=== PATIENT | male | born 2005 | race Caucasian/White ===

== ENCOUNTER 2023-02-17 16:31 | Emergency (ER) | payer OTHER, MEDICAID, SELFPAY ==
[2023-02-17 16:33] VITALS: BP 120/50; PULSE 76; RESP 17; O2SAT 97; BMI 37.5
--- NOTE | 2023-02-17 16:34 | CTR_ITS ---
PROCEDURE INFORMATION: Exam: CT Head Without Contrast Exam date and time: 02/17/2023 5:47 PM Age: 18 years old Clinical indication: Altered mental status/memory loss; Patient HX: AMS post marijuana consumption TECHNIQUE: Imaging protocol: Computed tomography of the head without contrast. Radiation optimization: All CT scans at this facility use at least one of these dose optimization techniques: automated exposure control; mA and/or kV adjustment per patient size (includes targeted exams where dose is matched to clinical indication); or iterative reconstruction. REPORTING DATA: Count of CT and Cardiac NM exams in prior 12 months: This patient has received 0 known CTs and 0 known cardiac nuclear medicine studies in the 12 months prior to the current study. COMPARISON: No relevant prior studies available. RADIATION DOSE METRICS: Total DLP (mGy-cm): 1223.59 FINDINGS: Brain: Normal. No hemorrhage. Unremarkable white matter. No mass effect. Cerebral ventricles: No ventriculomegaly. Paranasal sinuses: Bilateral ethmoid sinus mucosal thickening. Mastoid air cells: Visualized mastoid air cells are well aerated. Bones/joints: Unremarkable. No acute fracture. Soft tissues: Unremarkable. CT/CT head wo con* [id number] IMPRESSION: Negative for intracranial hemorrhage or mass effect.
--- NOTE | 2023-02-17 16:34 | XRR_ITS ---
PROCEDURE INFORMATION: Exam: XR Chest Exam date and time: 02/17/2023 5:13 PM Age: 18 years old Clinical indication: Cough and dyspnea; Additional info: Dyspnea/cough TECHNIQUE: Imaging protocol: Radiologic exam of the chest. Views: 1 view. COMPARISON: No relevant prior studies available. FINDINGS: Lungs: Unremarkable. No consolidation. Pleural spaces: Unremarkable. No pleural effusion. No pneumothorax. Heart/Mediastinum: Unremarkable. No cardiomegaly. Bones/joints: Unremarkable. XR/XR chest 1V portable [id number] IMPRESSION: No acute findings.
--- NOTE | 2023-02-17 16:39 | ECG_ITS ---
[facility] Test Date: 2023-02-17 Pat Name: Herber Rodriguez Department: Room: Gender: Male Tag[place]: : 2005 Requested By: Oscar Boyce Order Number: [id number] Yemi MD: Rafa Bryant M.D. Measurements Intervals [place] Rate: 78 P: 32 NC: 151 QRS: 32 QRSD: 98 T: 27 QT: 358 QTc: 410 Interpretive Statements SINUS RHYTHM No previous ECG available for comparison Electronically Signed On 02-18-2023 9:29:12 CDT by Rafa Bryant M.D. [id number]
--- NOTE | 2023-02-17 16:45 | W.ED.CHESTPA ---
Documented by User: Oscar oFy DO 02/18/23 10:44 HPI - Chest Pain General: Chief Complaint: Chest Pain Stated Complaint: AMS Time Seen by Provider: 02/17/23 16:33 Source: patient Mode of arrival: EMS History of Present Illness: 18-year-old male presents emergency room complaining of altered mental status and chest discomfort. He smoked a large quantity of marijuana started getting some chest discomfort around 3:00 he called EMS he was given nitro 2 mg Narcan and aspirin in route. He continues to have discomfort and is very positional that he is moving things around the apartment at the time he started experiencing the pain has not had any vomiting. Patient is obese he is not diabetic and has no history of coronary artery disease. MD complaint: chest pain Onset (ago): hour(s) Timing of current episode: episodic Onset: during exertion Pain location: left chest Pain radiation: none Severity: moderate Quality: sharp Relieving factors: nothing Exacerbating factors: nothing Associated symptoms: Deny abdominal pain, diaphoresis, dyspnea, fever(s), leg edema, nausea, palpitations, sense of impending doom, syncope or vomiting Review of Systems Const: Denies: fever(s), chills or diaphoresis ENMT: Denies: throat pain, ear or mastoid pain, nasal discharge or nasal congestion Card: Reports: chest pain; Denies: palpitations, irregular heart rhythm, edema or syncope Resp: Denies: dyspnea GI: Denies: abdominal pain, nausea or vomiting : Denies: flank pain, dysuria, urinary frequency or urinary urgency Musc: Denies: neck pain or back pain Skin/Breast: Denies: rash or pruritus Physical Exam Const: GENERAL APPEARANCE: cooperative ORIENTATION/CONSCIOUSNESS: Yes awake HENMT: COMMON NORMALS: normocephalic, atraumatic and hearing grossly normal bilaterally HEAD & SCALP: normocephalic and atraumatic Resp: COMMON NORMALS: normal respiratory effort, No retractions, No use of accessory muscles and clear to auscultation bilaterally AUSCULTATION: clear to auscultation bilaterally Cardio: COMMON NORMALS: regular rate, regular rhythm and No murmurs present (Cardio) RATE: regular rate RHYTHM: regular rhythm GI: COMMON NORMALS: Soft to palpation and No hepatosplenomegaly present AUSCULTATION: Yes normoactive bowel sounds PALPATION: Yes Soft to palpation, No Tenderness to palpation present (GI), No Guarding due to palpation present (GI) and Yes No hepatosplenomegaly present Extremity: COMMON NORMALS: normal to inspection, capillary refill normal, no clubbing, cyanosis or edema, no calf tenderness and no pedal edema Skin: COMMON NORMALS: no rashes or lesions noted GENERAL SKIN EXAM: no rashes or lesions noted Course Vital Signs: Vital signs: Vital Signs Pulse Rate 63 02/17/23 19:04 Respiratory Rate 18 02/17/23 19:04 Blood Pressure 111/68 02/17/23 19:04 Pulse Oximetry 97 02/17/23 19:04 Oxygen Delivery Me thod Room Air 02/17/23 19:04 MDM - Chest Pain Medical Decision Making Care signed out to Dr. Bright at change of shift. See final notes for diagnosis and disposition. Patient presents here with chest pain likely from marijuana use he is also had some internal status he is now awake and alert here his symptoms have improved his blood work here is all normal no signs of acute coronary syndrome he is to follow-up with PCP and return if worsening. Lab Data 02/17/23 16:48 02/17/23 16:48 Radiology Impressions Chest X-Ray 02/17/23 16:34 IMPRESSION: No acute findings. Head CT 02/17/23 16:34 IMPRESSION: Negative for intracranial hemorrhage or mass effect. Laboratory Results WBC 12.20 10^3/uL (4.5-13.0) 02/17/23 16:48 RBC 4.69 10^6/uL (3.85-5.65) 02/17/23 16:48 Hgb 14.50 g/dL (13.2-15.6) 02/17/23 16:48 Hct 41.8 % (37-53) 02/17/23 16:48 MCV 89.1 fl (82-101) 02/17/23 16:48 MCH 30.9 pg (27-33) 02/17/23 16:48 MCHC 34.7 g/dL (30-55) 02/17/23 16:48 RDW 11.9 % (12.1-15.1) L 02/17/23 16:48 Plt Count 282 10^3/cmm (157-399) 02/17/23 16:48 MPV 10.2 fL (7.4-10.4) 02/17/23 16:48 Neut % (Auto) 63.6 % 02/17/23 16:48 Lymph % (Auto) 25.0 % 02/17/23 16:48 Dixie % (Auto) 8.0 % 02/17/23 16:48 Eos % (Auto) 2.5 % 02/17/23 16:48 Baso % (Auto) 0.5 % 02/17/23 16:48 Neut # (Auto) 7.76 10^3/uL (1.8-8.0) 02/17/23 16:48 Lymph # (Auto) 3.1 10^3/uL (1.5-6.5) 02/17/23 16:48 Dixie # (Auto) 1.0 10^3/uL (0.2-0.9) H 02/17/23 16:48 Eos # (Auto) 0.3 10^3/uL (0.0-0.8) 02/17/23 16:48 Baso # (Auto) 0.1 10^3/uL (0.0-0.1) 02/17/23 16:48 Nucleated RBC % (auto) 0 % 02/17/23 16:48 Nucleated RBCs # 0.0 /100WBC 02/17/23 16:48 Specimen Type Arterial 02/17/23 16:54 Sample Site Radial, left 02/17/23 16:54 ABG pH 7.41 (7.35-7.45) 02/17/23 16:54 ABG pCO2 41.5 mmHg (35-45) 02/17/23 16:54 ABG pO2 86.6 mmHg (80.0-100.0) 02/17/23 16:54 ABG HCO3 26.1 mmol/L (22-26) H 02/17/23 16:54 ABG O2 Saturation 98.3 02/17/23 16:54 ABG Base Excess 1.1 mmol/L (-2.0-2.0) 02/17/23 16:54 Kannan Test Pos 02/17/23 16:54 A-a O2 Gradient 1.5 mmHg (5-10) L 02/17/23 16:54 Hematocrit 44.9 % (42-52) 02/17/23 16:54 Hgb O2 Saturation 91.9 % (95-100) L 02/17/23 16:54 Carboxyhemoglobin 6.3 %THgb (0.4-20.1) 02/17/23 16:54 Methemoglobin 0.1 % (0.4-1.5) L 02/17/23 16:54 Total Hemoglobin 14.6 g/dL (14-18) 02/17/23 16:54 Sodium 141.0 mmol/L (131-143) 02/17/23 16:54 Potassium 3.8 mmol/L (3.5-5.0) 02/17/23 16:54 Glucose 127.0 mg/dL (70-115) H 02/17/23 16:54 Ionized Calcium 1.2 mmol/L (1.1-1.4) 02/17/23 16:54 O2 Delivery Device Room air 02/17/23 16:54 FiO2 21.0 % 02/17/23 16:54 Tissue Technician ID Cak 02/17/23 16:54 Sodium 138 mmol/L (136-145) 02/17/23 16:48 Potassium 3.8 mmol/L (3.5-5.1) 02/17/23 16:48 Chloride 104 mmol/L (98-107) 02/17/23 16:48 Carbon Dioxide 26 mmol/L (22-29) 02/17/23 16:48 Anion Gap 11.8 (5-19) 02/17/23 16:48 BUN 16 mg/dL (6-20) 02/17/23 16:48 Creatinine 1.0 mg/dL (0.7-1.2) 02/17/23 16:48 GFR Calculation 95.3 mL/min (90-130) 02/17/23 16:48 Glucose 117 mg/dL (65-115) H 02/17/23 16:48 Calculated Osmolality 288 mOsm/kg (285-295) 02/17/23 16:48 Calcium 8.8 mg/dL (8.5-10.5) 02/17/23 16:48 Total Bilirubin 1.2 mg/dL (0.15-1.2) 02/17/23 16:48 AST 18 U/L (0-40) 02/17/23 16:48 ALT 19 U/L (0-41) 02/17/23 16:48 Alkaline Phosphatase 61 U/L (40-130) 02/17/23 16:48 Total Protein 6.4 g/dL (6.6-8.7) L 02/17/23 16:48 Albumin 4.3 g/dL (3.5-5.2) 02/17/23 16:48 Globulin 2.1 g/dL (1.3-4.6) 02/17/23 16:48 Salicylates 0.6 mg/dL (3-10) L 02/17/23 16:48 Acetaminophen < 5.0 ug/mL (10-30) L 02/17/23 16:48 Ethyl Alcohol < 10 mg/dL (0-10) 02/17/23 16:48 Discharge Plan Discharge Patient Disposition: Home Clinical Impression: Atypical chest pain, Marijuana use Condition: Stable Discharge Orders: Discharge ED (Routine); Ordered 02/17/23 Ordered By: Meagan Bright Referrals: Alisha Carter FNP [Primary Care Provider] - Discharge Diet: Advance as tolerated Discharge Activity: Resume usual activity Patient Instructions: Marijuana Abuse, Chest Pain (ED) Coding Level of Care Code ED Small Engine Technician for Chg Fwd Documented by User: Meagan Bright MD 02/17/23 20:44 HPI - Chest Pain General: Chief Complaint: Chest Pain Stated Complaint: AMS Time Seen by Provider: 02/17/23 16:33 Course Vital Signs: Vital signs: Vital Signs Pulse Rate 63 02/17/23 19:04 Respiratory Rate 18 02/17/23 19:04 Blood Pressure 111/68 02/17/23 19:04 Pulse Oximetry 97 02/17/23 19:04 Oxygen Delivery Me thod Room Air 02/17/23 19:04 MDM - Chest Pain Medical Decision Making Patient presents here with chest pain likely from marijuana use he is also had some internal status he is now awake and alert here his symptoms have improved his blood work here is all normal no signs of acute coronary syndrome he is to follow-up with PCP and return if worsening. Lab Data 02/17/23 16:48 02/17/23 16:48 Radiology Impressions Chest X-Ray 02/17/23 16:34 IMPRESSION: No acute findings. Head CT 02/17/23 16:34 IMPRESSION: Negative for intracranial hemorrhage or mass effect. Laboratory Results WBC 12.20 10^3/uL (4.5-13.0) 02/17/23 16:48 RBC 4.69 10^6/uL (3.85-5.65) 02/17/23 16:48 Hgb 14.50 g/dL (13.2-15.6) 02/17/23 16:48 Hct 41.8 % (37-53) 02/17/23 16:48 MCV 89.1 fl (82-101) 02/17/23 16:48 MCH 30.9 pg (27-33) 02/17/23 16:48 MCHC 34.7 g/dL (30-55) 02/17/23 16:48 RDW 11.9 % (12.1-15.1) L 02/17/23 16:48 Plt Count 282 10^3/cmm (157-399) 02/17/23 16:48 MPV 10.2 fL (7.4-10.4) 02/17/23 16:48 Neut % (Auto) 63.6 % 02/17/23 16:48 Lymph % (Auto) 25.0 % 02/17/23 16:48 Dixie % (Auto) 8.0 % 02/17/23 16:48 Eos % (Auto) 2.5 % 02/17/23 16:48 Baso % (Auto) 0.5 % 02/17/23 16:48 Neut # (Auto) 7.76 10^3/uL (1.8-8.0) 02/17/23 16:48 Lymph # (Auto) 3.1 10^3/uL (1.5-6.5) 02/17/23 16:48 Dixie # (Auto) 1.0 10^3/uL (0.2-0.9) H 02/17/23 16:48 Eos # (Auto) 0.3 10^3/uL (0.0-0.8) 02/17/23 16:48 Baso # (Auto) 0.1 10^3/uL (0.0-0.1) 02/17/23 16:48 Nucleated RBC % (auto) 0 % 02/17/23 16:48 Nucleated RBCs # 0.0 /100WBC 02/17/23 16:48 Specimen Type Arterial 02/17/23 16:54 Sample Site Radial, left 02/17/23 16:54 ABG pH 7.41 (7.35-7.45) 02/17/23 16:54 ABG pCO2 41.5 mmHg (35-45) 02/17/23 16:54 ABG pO2 86.6 mmHg (80.0-100.0) 02/17/23 16:54 ABG HCO3 26.1 mmol/L (22-26) H 02/17/23 16:54 ABG O2 Saturation 98.3 02/17/23 16:54 ABG Base Excess 1.1 mmol/L (-2.0-2.0) 02/17/23 16:54 Kannan Test Pos 02/17/23 16:54 A-a O2 Gradient 1.5 mmHg (5-10) L 02/17/23 16:54 Hematocrit 44.9 % (42-52) 02/17/23 16:54 Hgb O2 Saturation 91.9 % (95-100) L 02/17/23 16:54 Carboxyhemoglobin 6.3 %THgb (0.4-20.1) 02/17/23 16:54 Methemoglobin 0.1 % (0.4-1.5) L 02/17/23 16:54 Total Hemoglobin 14.6 g/dL (14-18) 02/17/23 16:54 Sodium 141.0 mmol/L (131-143) 02/17/23 16:54 Potassium 3.8 mmol/L (3.5-5.0) 02/17/23 16:54 Glucose 127.0 mg/dL (70-115) H 02/17/23 16:54 Ionized Calcium 1.2 mmol/L (1.1-1.4) 02/17/23 16:54 O2 Delivery Device Room air 02/17/23 16:54 FiO2 21.0 % 02/17/23 16:54 Tissue Technician ID Cak 02/17/23 16:54 Sodium 138 mmol/L (136-145) 02/17/23 16:48 Potassium 3.8 mmol/L (3.5-5.1) 02/17/23 16:48 Chloride 104 mmol/L (98-107) 02/17/23 16:48 Carbon Dioxide 26 mmol/L (22-29) 02/17/23 16:48 Anion Gap 11.8 (5-19) 02/17/23 16:48 BUN 16 mg/dL (6-20) 02/17/23 16:48 Creatinine 1.0 mg/dL (0.7-1.2) 02/17/23 16:48 GFR Calculation 95.3 mL/min (90-130) 02/17/23 16:48 Glucose 117 mg/dL (65-115) H 02/17/23 16:48 Calculated Osmolality 288 mOsm/kg (285-295) 02/17/23 16:48 Calcium 8.8 mg/dL (8.5-10.5) 02/17/23 16:48 Total Bilirubin 1.2 mg/dL (0.15-1.2) 02/17/23 16:48 AST 18 U/L (0-40) 02/17/23 16:48 ALT 19 U/L (0-41) 02/17/23 16:48 Alkaline Phosphatase 61 U/L (40-130) 02/17/23 16:48 Total Protein 6.4 g/dL (6.6-8.7) L 02/17/23 16:48 Albumin 4.3 g/dL (3.5-5.2) 02/17/23 16:48 Globulin 2.1 g/dL (1.3-4.6) 02/17/23 16:48 Salicylates 0.6 mg/dL (3-10) L 02/17/23 16:48 Acetaminophen < 5.0 ug/mL (10-30) L 02/17/23 16:48 Ethyl Alcohol < 10 mg/dL (0-10) 02/17/23 16:48 Discharge Plan Discharge Patient Disposition: Home Clinical Impression: Atypical chest pain, Marijuana use Condition: Stable Discharge Orders: Discharge ED (Routine); Ordered 02/17/23 Ordered By: Meagan Bright Referrals: Alisha Carter [facility] ADMINISTRATOR [Primary Care Provider] - Discharge Diet: Advance as tolerated Discharge Activity: Resume usual activity Patient Instructions: Marijuana Abuse, Chest Pain (ED) Coding Level of Care Code ED Small Engine Technician for Philip Feng
[2023-02-17 17:05] LABS: ABG PCO2 41.5 mmHg (35-45); ABG PH Result 7.41 (7.35-7.45); Alveolar-Arterial Oxygen Gradi 1.5 mmHg (5-10); Arterial Blood Gas Hematocrit 44.9 % (42-52); Base Excess ABG 1.1 mmol/L (-2.0-2.0); Blood Gas Allen Test Pos; Blood Gas Operator Identificat CAK; Blood Gas Sample Site Radial, left; Blood Gas Sample Type Arterial; Carboxyhemoglobin 6.3 %THgb (0.4-20.1); HCO3 ABG 26.1 mmol/L (22-26); HGB O2 Sat 91.9 % (95-100); Ionized Calcium Level - ABG 1.2 mmol/L (1.1-1.4); Methemoglobin 0.1 % (0.4-1.5); Oxygen Device ROOM AIR; Oxygen Saturation ABG 98.3; PO2 ABG 86.6 mmHg (80.0-100.0); Potassium Level - ABG 3.8 mmol/L (3.5-5.0); Total Hemoglobin 14.6 g/dL (14-18)
[2023-02-17 17:12] LABS: Basophils # 0.1 10^3/uL (0.0-0.1); Basophils % 0.5 %; Eosinophils # 0.3 10^3/uL (0.0-0.8); Eosinophils % 2.5 %; Hematocrit 41.8 % (37-53); Lymphocytes # 3.1 10^3/uL (1.5-6.5); Mean Corpuscular HGB Conc 34.7 g/dL (30-55); Mean Corpuscular Hemoglobin 30.9 pg (27-33); Mean Corpuscular Volume 89.1 fl (82-101); Mean Platelet Volume 10.2 fL (7.4-10.4); Neutrophils # 7.76 10^3/uL (1.8-8.0); Neutrophils % 63.6 %; Nucleated Red Blood Cells % 0 %; Platelet Count 282 10^3/cmm (157-399); Red Blood Count 4.69 10^6/uL (3.85-5.65); Red Cell Distribution Width 11.9 % (12.1-15.1)
[2023-02-17 17:23] VITALS: PULSE 68; O2SAT 99
[2023-02-17] MEDS: aluminum-mag hydrox-simethicon 30 ML, sucralfate oral liq 1 GM PO (17:29)
[2023-02-17 17:33] LABS: Alanine Aminotransferase 19 U/L (0-41); Albumin Level 4.3 g/dL (3.5-5.2); Alkaline Phosphatase 61 U/L (40-130); Anion Gap 11.8 (5-19); Aspartate Amino Transferase 18 U/L (0-40); Blood Urea Nitrogen 16 mg/dL (6-20); Calcium 8.8 mg/dL (8.5-10.5); Carbon Dioxide 26 mmol/L (22-29); Chloride 104 mmol/L (98-107); Globulin 2.1 g/dL (1.3-4.6); Glomerular Filtration Rate 95.3 mL/min (90-130); Glucose 117 mg/dL (65-115); Osmolality Calculated 288 mOsm/kg (285-295); Potassium 3.8 mmol/L (3.5-5.1); Salicylate 0.6 mg/dL (3-10); Sodium 138 mmol/L (136-145); Total Bilirubin 1.2 mg/dL (0.15-1.2); Total Protein 6.4 g/dL (6.6-8.7)
[2023-02-17 17:37] VITALS: PULSE 79; RESP 18; O2SAT 99
[2023-02-17 17:37] LABS: Acetaminophen < 5.0 ug/mL (10-30); Alcohol Level < 10 mg/dL (0-10)
[2023-02-17 18:49] VITALS: O2SAT 98
[2023-02-17 19:04] VITALS: BP 111/68; PULSE 63; RESP 18; O2SAT 97
== END 2023-02-17 20:35 | disposition home or self-care (01) ==
PROVIDERS: Family Medicine; Emergency Provider Emergency Medicine; PCP Nurse Practitioner Family
DX: R07.89 Other chest pain (principal); F12.90 Cannabis use, unspecified, uncomplicated
CPT/HCPCS: 36415; 36600; 70450; 71045; 80051; 80053; 80307; 82330; 82805; 85025; 87040; 93005; 99285